=== PATIENT | male | born 1965 ===

== ENCOUNTER 2021-12-24 10:20 | Emergency (ER) | payer MEDICARE ==
[2021-12-24 10:39] VITALS: BP 136/83
--- NOTE | 2021-12-24 10:50 | Emergency Department Report ---
ED Neuro Deficit HPI - General Chief Complaint: Neuro Symptoms/Deficit Stated Complaint: PSYCH Time Seen by Provider: 12/24/21 10:48 Source: patient Mode of arrival: Ambulatory Limitations: No Limitations - History of Present Illness Initial Comments: Patient presents as a code stroke he has some right-sided facial droop and a headache that has been going on today. After further evaluation and speaking to his caregiver his droop is chronic and he no longer has a headache he is coming in for medication refills. The headache is a 4 out of 10 nothing makes it better nothing makes it worse. Patient is not compared Haning of any paresthesia or neuropathy. - Related Data Home Medications: Previous Rx's Medication Instructions Recorded Last Taken Type OLANZapine [Zyprexa] 20 mg PO QHS #30 tab 12/24/21 Unknown Rx Sertraline [Zoloft] 100 mg PO QDAY #30 tab 12/24/21 Unknown Rx Allergies/Adverse Reactions: Allergies Allergy/AdvReac Type Severity Reaction Status Date / Time No Known Allergies Allergy Verified 12/24/21 10:39 ED Review of Systems ROS: Stated complaint: PSYCH Other details as noted in HPI Constitutional: denies: chills, fever Eyes: denies: eye pain, eye discharge, vision change ENT: denies: ear pain, throat pain Respiratory: denies: cough, shortness of breath, wheezing Cardiovascular: denies: chest pain, palpitations Endocrine: no symptoms reported Gastrointestinal: denies: abdominal pain, nausea, diarrhea Genitourinary: denies: urgency, dysuria Musculoskeletal: denies: back pain, joint swelling, arthralgia Skin: denies: rash, lesions Neurological: as per HPI, numbness. denies: headache, weakness, paresthesias Psychiatric: denies: anxiety, depression Hematological/Lymphatic: denies: easy bleeding, easy bruising ED Past Medical Hx - Medications Home Medications: Home Medications Medication Instructions Recorded Confirmed Last Taken Type OLANZapine [Zyprexa] 20 mg PO QHS #30 tab 12/24/21 Unknown Rx Sertraline [Zoloft] 100 mg PO QDAY #30 tab 12/24/21 Unknown Rx ED Neuro Physical Exam - General Limitations: No Limitations General appearance: alert, in no apparent distress Suspected Stroke: No - Head Head exam: Present: atraumatic, normocephalic - Eye Eye exam: Present: normal appearance - ENT ENT exam: Present: mucous membranes moist - Neck Neck exam: Present: normal inspection - Respiratory Respiratory exam: Present: normal lung sounds bilaterally. Absent: respiratory distress - Cardiovascular Cardiovascular Exam: Present: regular rate, normal rhythm. Absent: systolic murmur, diastolic murmur, rubs, gallop - GI/Abdominal GI/Abdominal exam: Present: soft, normal bowel sounds - Rectal Rectal exam: Present: deferred - Extremities Exam Extremities exam: Present: normal inspection - Back Exam Back exam: Present: normal inspection - Neurological Exam Neurological exam: Present: alert, oriented X3 - Psychiatric Psychiatric exam: Present: normal affect, normal mood - Skin Skin exam: Present: warm, dry, intact, normal color. Absent: rash ED Course Vital Signs 12/24/21 10:37 Temperature 98 F Pulse Rate 131 H Respiratory 18 Rate Blood Pressure 136/83 [Left] O2 Sat by Pulse 97 Oximetry - Consultations Consultation #1: 12/24/21 13:59 Consulted with telemetry neurologist Dr. Moya. Patient does not have acute stroke and can be discharged and does not need to be admitted to the hospital. - Lab Data Result diagrams: 12/24/21 12:29 Lab Results 12/24/21 12/24/21 12/24/21 Range/Units 12:29 12:29 12:29 WBC 10.9 (4.5-11.0) K/mm3 RBC 4.95 (3.65-5.03) M/mm3 Hgb 14.8 (11.8-15.2) gm/dl Hct 43.6 (35.5-45.6) % MCV 88 (84-94) fl MCH 30 (28-32) pg MCHC 34 (32-34) % RDW 15.6 H (13.2-15.2) % Plt Count 352 (140-440) K/mm3 Lymph % (Auto) 11.2 L (13.4-35.0) % Elbert % (Auto) 5.0 (0.0-7.3) % Eos % (Auto) 0.8 (0.0-4.3) % Baso % (Auto) 0.8 (0.0-1.8) % Lymph # (Auto) 1.2 (1.2-5.4) K/mm3 Elbert # (Auto) 0.5 (0.0-0.8) K/mm3 Eos # (Auto) 0.1 (0.0-0.4) K/mm3 Baso # (Auto) 0.1 (0.0-0.1) K/mm3 Seg Neutrophils % 82.2 H (40.0-70.0) % Seg Neutrophils # 9.0 H (1.8-7.7) K/mm3 PT 13.7 (12.2-14.9) Sec. INR 0.95 (0.87-1.13) APTT 29.2 (24.2-36.6) Sec. Total Creatine Kinase 47 L (55-170) units/L CK-MB (CK-2) 1.6 (0.0-4.0) ng/mL CK-MB (CK-2) Rel Index 3.4 (0-4) Troponin T < 0.010 (0.00-0.029) ng/mL Lab Results 12/24/21 12/24/21 12/24/21 Range/Units 12:29 12:29 12:29 WBC 10.9 (4.5-11.0) K/mm3 RBC 4.95 (3.65-5.03) M/mm3 Hgb 14.8 (11.8-15.2) gm/dl Hct 43.6 (35.5-45.6) % MCV 88 (84-94) fl MCH 30 (28-32) pg MCHC 34 (32-34) % RDW 15.6 H (13.2-15.2) % Plt Count 352 (140-440) K/mm3 Lymph % (Auto) 11.2 L (13.4-35.0) % Elbert % (Auto) 5.0 (0.0-7.3) % Eos % (Auto) 0.8 (0.0-4.3) % Baso % (Auto) 0.8 (0.0-1.8) % Lymph # (Auto) 1.2 (1.2-5.4) K/mm3 Elbert # (Auto) 0.5 (0.0-0.8) K/mm3 Eos # (Auto) 0.1 (0.0-0.4) K/mm3 Baso # (Auto) 0.1 (0.0-0.1) K/mm3 Seg Neutrophils % 82.2 H (40.0-70.0) % Seg Neutrophils # 9.0 H (1.8-7.7) K/mm3 PT 13.7 (12.2-14.9) Sec. INR 0.95 (0.87-1.13) APTT 29.2 (24.2-36.6) Sec. Total Creatine Kinase 47 L (55-170) units/L CK-MB (CK-2) 1.6 (0.0-4.0) ng/mL CK-MB (CK-2) Rel Index 3.4 (0-4) Troponin T < 0.010 (0.00-0.029) ng/mL - EKG Data -: EKG Interpreted by Me - Radiology Data Radiology results: report reviewed, image reviewed CT head: Shows no acute intracranial process CT angio: Shows no acute intercranial process - Medical Decision Making Chief medical diagnosis: Chronic pulsate Differential medical diagnosis hemorrhagic stroke, ischemic stroke I will get neurology consult blood work CT his head and of head CT angio and will reevaluate the patient. - Core Measures AMI Core Measures Followed: Yes Measure Exclusions: not indicated - Thrombolytic Inclusion/Exclusion Thrombolytic Exclusion Criteria: Onset of Symptoms Unknown Thrombolytic Inclusion Criteria: Negative CT Scan for ICH Thrombolytic Contraindications: Rapidily Improving s/s Critical care attestation.: If time is entered above; I have spent that time in minutes in the direct care of this critically ill patient, excluding procedure time. ED Disposition Clinical Impression: Facial palsy, Tension headache Disposition: 01 HOME / SELF CARE / HOMELESS Is pt being admited?: No Does the pt Need Aspirin: No Condition: Stable Instructions: Tension Headache, Adult, Ggks-[id number] Prescriptions: OLANZapine [Zyprexa] 20 mg PO QHS #30 tab Sertraline [Zoloft] 100 mg PO QDAY #30 tab Referrals: PRIMARY CARE, [Primary Care Provider] - 3-5 Days
--- NOTE | 2021-12-24 11:26 | Cat Scan Report ---
CT HEAD WITHOUT CONTRAST INDICATION / CLINICAL INFORMATION: Stroke symptoms. TECHNIQUE: Axial imaging performed from the skull apex through the skull base without the use of cont rast. Sagittal and coronal reformatted images. All CT scans at this location are performed using CT dose reduction for ALARA by means of automated exposure control. COMPARISON: None available. FINDINGS: CEREBRAL PARENCHYMA: No significant abnormality. No acute territorial infarct. HEMORRHAGE: None. EXTRA-AXIAL SPACES: Normal in size and morphology for the patient's age. VENTRICULAR SYSTEM: Normal in size and morphology for the patient's age. MIDLINE SHIFT OR HERNIATION: None. CEREBELLUM / BRAINSTEM: No significant abnormality. CALVARIUM: No significant abnormality. ORBITS: Normal as visualized. PARANASAL SINUSES / MASTOID AIR CELLS: Normal as visualized. SOFT TISSUES of HEAD: No significant abnormality. ADDITIONAL FINDINGS: None. IMPRESSION: No acute intracranial abnormality. CODE STROKE: Time of Communication (CHILD WELFARE MANAGER/CDT): 1021 hours Licensed Practitioner Receiving Report: Dr. Mejia Signer Name: Aristides Moreno Jr, MD Signed: 12/24/2021 11:22 AM Workstation Name: [id number]
--- NOTE | 2021-12-24 11:26 | Consultation ---
Medications and Allergies Allergies Allergy/AdvReac Type Severity Reaction Status Date / Time No Known Allergies Allergy Verified 12/24/21 10:39 Physical Examination - Vital Signs Vital Signs: Vital Signs Temp Pulse Resp BP Pulse Ox 98 F 131 H 18 136/83 97 12/24/21 10:37 12/24/21 10:37 12/24/21 10:37 12/24/21 10:37 12/24/21 10:37 Assessment and Plan [facility] Consult Note # Demographics Consult Type: Acute Stroke Level 1 (0-4.5 hrs) Patient Location: Emergency Room First Name: meliza Last Name: Shilo Age: 56 Gender: Male Facility: [facility] Time of Initial Page ( Time): 12/24/2021, 10:40 Time of Return Call ( Time): 12/24/2021, 10:45 # HPI History: 56M with headache and facial droop, last well is unclear so far. Per laundry room attendant, patient "ran out of meds". Stroke code initiated in ED for facial droop. # Scores Time of exam and NIHSS ( Time): 12/24/2021, 11:21 Level of Consciousness 1a: [0] = Alert; keenly responsive LOC Questions 1b: [0] = Answers both questions correctly LOC Commands 1c: [0] = Performs both tasks correctly Best Gaze 2: [0] = Normal Visual 3: [0] = No visual loss Facial Palsy 4: [1] = Minor paralysis Motor Arm Left 5a: [0] = No drift Motor Arm Right 5b: [0] = No drift Motor Leg Left 6a: [0] = No drift Motor Leg Right 6b: [0] = No drift Limb Ataxia 7: [0] = Absent Sensory 8: [0] = Normal Best Language 9: [0] = No aphasia Dysarthria 10: [0] = Normal Extinction and Inattention 11: [0] = No abnormality NIHSS Total: 1 VAN Screening: Negative # Exam Additional Neurologic Exam: smile looks normal to caregiver. Choreaform movements affecting all extremities and trunk/neck. # Assessment Impression: Stroke Mimic baseline facial asymmetry (per caregiver) and patient needing medication refil ls. # Plan Thrombolytic/Intervention: NOT IV Thrombolysis or IA Intervention candidate Thrombolytic Exclusion (< 3 hour window): time of onset unclear Thrombolytic Exclusion: > 4.5 hours Intraarterial Exclusion: no large vessel occlusion (LVO) Other: I have discussed my recommendations with the referring provider Additional Recommendations: Since patient is reportedly at neurologic baseline, and neuroimaging is reassuring, ok to defer further stroke evaluation from my perspective. Follow-up outpatient providers when possible. Disposition: discharge # Logistics Telemedicine: Interactive 2 way audio and visual telecommunication technology was utilized during this visit
--- NOTE | 2021-12-24 11:36 | Cat Scan Report ---
CTA NECK INDICATION / CLINICAL INFORMATION: 56 years Male; stroke. Right facial droop. TECHNIQUE: Thin cut axial images obtained through the head following 100 cc of Omnipaque 350 intraven ously. Sagittal, coronal, and 3 plane MIP reconstructions performed by the technologist. NASCET type criteria used evaluate stenoses. All CT scans at this location are performed using CT dose reduction for ALARA by means of automated exposure control. COMPARISON: None available. FINDINGS: ARCH: Normal aortic arch branching suggested. CAROTID ARTERIES: The visualized common and internal carotid arteries are widely patent. VERTEBRAL ARTERIES: Left dominant vertebral system seen. No significant stenosis appreciated. ADDITIONAL FINDINGS: The right internal jugular vein is atretic and appears to be occluded in the low er neck at the level of the thyroid gland. There are multiple collateral veins in the lower neck, mor e so on the right side. IMPRESSION: No significant stenosis appreciated on this CTA of the neck. 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 No thrombosis is appreciated. CTA HEAD WITH CONTRAST HISTORY: Stroke symptoms, right facial droop. COMPARISON: None. TECHNIQUE: Routine non-contrast CT Head, CTA of the head and post-contrast CT Head are performed. 3-D /MIP reformats postprocessed. All CT scans at this location are performed using CT dose reduction for ALARA by means of automated e xposure control CONTRAST: 100 ml of Omnipaque 350 FINDINGS: CTA Head: Intracranial vertebral arteries: No significant abnormality. Basilar artery: No significant abnormality. Posterior cerebral arteries: No significant abnormality. Intracranial internal carotid arteries: No significant abnormality. Anterior cerebral arteries: No significant abnormality. Middle cerebral arteries: No significant abnormality. Dural venous sinuses:Not optimally opacified. No significant abnormality. Additional findings: None. IMPRESSION: 1. No significant abnormality. Signer Name: Aristides Moreno Jr, MD Signed: 12/24/2021 11:31 AM Workstation Name: [id number]
[2021-12-24 13:10] LABS: Basophils # (Auto) 0.1 K/mm3 (0.0-0.1); Basophils % (Auto) 0.8 % (0.0-1.8); Eosinophils # (Auto) 0.1 K/mm3 (0.0-0.4); Eosinophils % (Auto) 0.8 % (0.0-4.3); Hematocrit 43.6 % (35.5-45.6); Hemoglobin 14.8 gm/dl (11.8-15.2); Lymphocytes # (Auto) 1.2 K/mm3 (1.2-5.4); Lymphocytes % (Auto) 11.2 % (13.4-35.0); Mean Corpuscular HGB Conc 34 % (32-34); Mean Corpuscular Volume 88 fl (84-94); Monocytes # (Auto) 0.5 K/mm3 (0.0-0.8); Platelet Count 352 K/mm3 (140-440); Red Blood Count 4.95 M/mm3 (3.65-5.03); Red Cell Distribution Width 15.6 % (13.2-15.2)
[2021-12-24 13:19] LABS: INR 0.95 (0.87-1.13)
[2021-12-24 13:20] LABS: Partial Thromboplastin Time 29.2 Sec. (24.2-36.6)
[2021-12-24 13:45] LABS: Creatine Kinase MB 1.6 ng/mL (0.0-4.0)
[2021-12-24 13:50] LABS: Thrombin Time TNR Sec. (15.1-19.6)
== END 2021-12-24 14:42 | disposition home or self-care (01) ==
LOC: ED 10:20
DX: G51.0 Bell's palsy (principal); G44.209 Tension-type headache, unspecified, not intractable
CPT/HCPCS: 36415; 70450; 70496; 70498; 82550; 82553; 84484; 85025; 85610; 85730; 99284; Q9967